=== PATIENT | male | born 1985 | race Caucasian/White ===

== ENCOUNTER → 2018-03-08 | Outpatient (CLI) | payer OTHER | LOC: M RAD 08:58 | DX: M25.752 Osteophyte, left hip (principal); M51.36 Other intervertebral disc degeneration, lumbar region | CPT/HCPCS: 72110 ==

== ENCOUNTER → 2018-09-02 | Outpatient (CLI) | payer OTHER ==
--- NOTE | 2018-09-02 15:29 | REP ---
MRI lumbar spine without contrast: History: Low back pain. Comparison radiographs March 08, 2018. Technique: Sagittal and axial T1 and T2-weighted scans are acquired in the usual fashion with and without fat saturation. Sequences include spin echo, turbo spin-echo, and STIR imaging sequences. MRI findings: Lumbar vertebral body heights are preserved. Alignment is normal. There is no evidence of spondylolysis or spondylolisthesis. Conus medullaris is normal in position and appearance at L1. No extra vertebral abnormality is observed. Aorta is normal in caliber. There is degenerative disc narrowing and decreased disc space signal intensity at L4-5. There is a moderate sized left paracentral L4-5 disc herniation. This combined with developmentally short pedicles, ligamentum flavum hypertrophy, and facet hypertrophy produces moderate central canal stenosis. AP dimension of the thecal sac at this level is 7.5 mm in the midline. There is mild bilateral neural foraminal encroachment due to disc bulging. At L5-S1, there is also degenerative narrowing and desiccation of the disc. At L5-S1, there is a moderate sized left posterior disc herniation effacing the left ventral aspect of the thecal sac and producing or contributing to mild central canal stenosis. Ligamentum flavum and facet hypertrophy is present at L5-S1. Pedicles are developmentally short. There is mild caudal extension of the disc protrusion. There is mild bilateral neural foraminal encroachment. The L3-4 level shows facet and ligamentum flavum hypertrophy. Canal size is borderline. No disc protrusion is seen. L2-3 level is unremarkable. L1-2 shows no abnormality. Impression: There are left-sided disc herniations L4-5 and L5-S1 as described above. Central canal stenosis is present. Multilevel neural foraminal encroachment. Electronically Signed by Geoff Reed MD 09/02/2018 03:52 P
== END ==
LOC: M RAD 14:17
PROVIDERS: ATTEND Surgery
DX: M54.5 Low back pain (principal)